=== PATIENT | female | born 1995 | race African-American/Black ===

== ENCOUNTER 2017-07-31 11:36 | Emergency (ER) | payer MEDICAID ==
--- NOTE | 2017-07-31 12:20 | ER Document Report ---
HPI - HPI Patient complains to provider of: sore throat Onset: Yesterday Pain Level: 3 Context: 21 yo smoker female woke up with sore throat yesterday. Worse this am, swollen, hard to talk. No fever. Hurts to swallow. Chest heavy with cough since yesterday. Associated Symptoms: Other - see above Exacerbated by: Denies Relieved by: Denies Similar symptoms previously: Yes Recently seen / treated by doctor: No - ROS ROS below otherwise negative: Yes Systems Reviewed and Negative: Yes All other systems reviewed and negative - REPRODUCTIVE Reproductive: DENIES: : Past Medical History - General Information source: Patient - Social History Smoking Status: Current Some Day Smoker Frequency of alcohol use: Rare Drug Abuse: None Family History: Reviewed & Not Pertinent Pulmonary Medical History: Reports: Hx Asthma GI Medical History: Reports: Hx Gastroesophageal Reflux Disease Past Surgical History: Reports: Hx Tonsillectomy - Immunizations Immunizations up to date: Yes Hx Diphtheria, Pertussis, Tetanus Vaccination: - unknown Vertical Provider Document - CONSTITUTIONAL Agree With Documented VS: Yes Exam Limitations: No Limitations General Appearance: No Apparent Distress - INFECTION CONTROL TRAVEL OUTSIDE OF THE [place] IN LAST 30 DAYS: No - HEENT HEENT: Normocephalic - NECK Neck: Supple. negative: Lymphadenopathy-Left, Lymphadenopathy-Right - RESPIRATORY Respiratory: Breath Sounds Normal, No Respiratory Distress - CARDIOVASCULAR Cardiovascular: Regular Rate, Regular Rhythm - GI/ABDOMEN Gastrointestinal: Abdomen Soft, Abdomen Non-Tender, No Organomegaly - MUSCULOSKELETAL/EXTREMETIES Musculoskeletal/Extremeties: MAEW - NEURO Level of Consciousness: Awake, Alert - DERM Integumentary: No Rash Course - Re-evaluation Re-evalutation: 07/31/17 13:02 rapid strept is negative, cx pending - Vital Signs Vital signs: Temp Pulse Resp BP Pulse Ox 99.0 F 86 16 115/63 98 07/31/17 11:52 07/31/17 11:52 07/31/17 11:52 07/31/17 11:52 07/31/17 11:52 Discharge - Discharge Clinical Impression: upper respiratory infection, sore throat Condition: Good Disposition: HOME, SELF-CARE Instructions: Acetaminophen, Ibuprofen (General) ([facility]), Sore Throat ([facility]), Upper Respiratory Illness ([facility]) Additional Instructions: plenty of fluids to er if worse tylenol motrin rest throat culture is pending Prescriptions: Ibuprofen [Motrin 600 mg Tablet] 600 mg PO Q8HP PRN #30 tablet PRN Reason: Forms: Return to Work
[2017-07-31] MEDS ORDERED: IBUPROFEN 600 MG TABLET PO ONE (12:24)
[2017-07-31 13:09] VITALS: BP 128/57
== END 2017-07-31 13:06 | disposition home or self-care (01) ==
LOC: ER 11:36
DX: J06.9 Acute upper respiratory infection, unspecified (principal); J02.9 Acute pharyngitis, unspecified; R05 Cough; F17.200 Nicotine dependence, unspecified, uncomplicated; J45.909 Unspecified asthma, uncomplicated
CPT/HCPCS: 99283; 87070; 87880; J3490